=== PATIENT | male | born 1945 | race Hispanic/Latino ===

== ENCOUNTER 2020-06-23 14:24 | Outpatient (CLI) | payer MEDICARE ==
--- NOTE | 2020-06-23 16:26 | XRay Report ---
LUMBAR SPINE 5 VIEWS WITH OBLIQUES 1444 INDICATION: RADICULAR LOW BACK PAIN M54.10 COMPARISON: None available. FINDINGS: Prominent degenerative changes are seen in the mid to lower lumbar region. Prominent disc s pace narrowing is seen at all levels below L2. Slight retrolisthesis is seen at L2-3 with grade 1 ant erolisthesis at L5-S1. No fractures are seen. Lower facet arthritic changes are noted. Atheroscleroti c changes are seen. Mild scoliosis is noted. Mild bilateral sacroiliac arthritic changes are seen. Signer Name: Sb Ron MD Signed: 06/23/2020 4:22 PM Workstation Name: [id number]
== END 2020-06-23 14:25 | disposition home or self-care (01) ==
LOC: SPVIMAG 14:24
PROVIDERS: ATTEND Internal Medicine
DX: M47.26 Other spondylosis with radiculopathy, lumbar region (principal); M48.061 Spinal stenosis, lumbar region without neurogenic claudication; I70.0 Atherosclerosis of aorta; M43.17 Spondylolisthesis, lumbosacral region
CPT/HCPCS: 72110

== ENCOUNTER 2020-10-14 12:56 | Outpatient (CLI) | payer MEDICARE ==
--- NOTE | 2020-10-14 15:11 | Magnetic Resonance Report ---
MRI lumbar spine without contrast INDICATION: Low back pain and radiculopathy TECHNIQUE: Axial and sagittal images FINDINGS: Diffuse heterogeneous marrow signal seen throughout. Conus appears normal L1-L2: Large left renal cyst is noted. Small disc bulge without significant neuroforaminal narrowing. L2-L3: Disc desiccation with facet arthropathy. Broad-based posterior disc bulge. Bilateral lateral r ecess narrowing right slightly greater than left. Mild right neuroforaminal narrowing. L3-L4: Endplate change and disc desiccation. Posterior disc osteophyte with mild left and mild-to-mod erate right neuroforaminal narrowing and lateral recess narrowing. L4-L5: Disc desiccation. There is a broad-based posterior disc bulge/herniation with annular tear. Mo derate bilateral lateral recess narrowing and neuroforaminal narrowing. L5-S1: Disc desiccation with endplate change. Disc osteophyte with mild right lateral recess narrowin g. No severe neuroforaminal narrowing. IMPRESSION: Multilevel discogenic degenerative change. Please see above level by level description. Signer Name: Finn Briscoe MD Signed: 10/14/2020 3:07 PM Workstation Name: [id number]
== END 2020-10-14 12:57 | disposition home or self-care (01) ==
LOC: SPVIMAG 12:56
PROVIDERS: ATTEND Internal Medicine
DX: M51.16 Intervertebral disc disorders with radiculopathy, lumbar region (principal); M47.26 Other spondylosis with radiculopathy, lumbar region; N28.1 Cyst of kidney, acquired
CPT/HCPCS: 72148